=== PATIENT | male | born 1985 | race African-American/Black ===

== ENCOUNTER 2016-12-05 20:00 | Emergency (ER) | payer SELFPAY ==
[~2016-12-05] VITALS: Ht 182.9 cm; Wt 78.0 kg
[2016-12-05 20:01] VITALS: BP 147/70; PULSE 79; RESP 16; TEMP 98.7; O2SAT 98
[2016-12-05] MEDS ORDERED: DICL75TA PO (20:27)
[2016-12-05] MEDS ORDERED: CYCL1TAB29 PO (20:27)
[2016-12-05] MEDS ORDERED: CYCLOBENZAPRINE HCL 10 MG TAB PO ONE (20:30)
[2016-12-05] MEDS ORDERED: NAPROXEN 500 MG TAB PO ONE (20:30)
--- NOTE | 2016-12-05 20:33 | PD ---
HPI Chief Complaint: Back/ Neck Pain or Injury Time Seen by Provider: 20:29 Travel History International Travel<30 days: No Contact w/Intl Traveler<30days: No Traveled to known affect area: No History of Present Illness HPI 31-year-old male presents emergency Department with complaints of acute exacerbation of chronic back pain. He states that he has back pain on a regular basis. He works doing welding and grinding. He states that he was bending over today and feels that this has exacerbated his chronic back pain. He states the pain is aching and cramping. Moderate in intensity but can get worse with certain movements. He does have some radiation of pain from lower back into the left leg. He denies any numbness or tingling. He denies any acute bowel or bladder changes. No trauma. No recent illness. The patient moved from [place] to [facility] in June of this year. Does not have a primary care doctor. PFSH Past Medical History Narrative Medical Chronic back pain Tetanus Vaccination: < 5 Years Social History Alcohol Use: Yes Tobacco Use: No (quit 5 years ago) Allergies-Medications (Allergen,Severity, Reaction): Coded Allergies: No Known Allergies (Unverified , 12/05/16) Reported Meds & Prescriptions Reported Meds & Active Scripts Active Flexeril (Cyclobenzaprine HCl) 10 Mg Tab 10 Mg PO TID Diclofenac Sodium DR (Diclofenac Sodium) 75 Mg Tabdr 75 Mg PO BID Review of Systems Except as stated in HPI: all other systems reviewed are Neg Physical Exam Narrative GENERAL: Well-developed, well-nourished in no apparent distress. Nontoxic appearing. HEAD: Normocephalic, atraumatic. EYES: Pupils equal round and reactive. Extraocular motions intact. No scleral icterus. No injection or drainage. ENT: Nose clear. Throat without erythema, tonsillar hypertrophy or exudate. Uvula midline. Airway patent. NECK: Trachea midline. Supple, nontender, moves head freely. No central bony tenderness or spasm. CARDIOVASCULAR: Regular rate and rhythm without murmurs, gallops, or rubs. RESPIRATORY: Clear to auscultation. Breath sounds equal bilaterally. No wheezes , rales, or rhonchi. GASTROINTESTINAL: Abdomen soft, non-tender, nondistended. No hepato-splenomegaly , or palpable masses. No guarding. EXTREMITIES: No clubbing, cyanosis, or edema. No joint tenderness. BACK: No central bony tenderness to palpation of the dorsal and lumbar spine. Without deformity. No flank tenderness. Patient ambulates freely. Negative straight leg raise bilaterally. Patient complains of bilateral lower lumbar tenderness. No gross spasm. No saddle anesthesia. Heel and toe stand. Deep tendon reflexes are 3+ bilaterally in the lower extremities NEUROLOGICAL: Awake, alert and oriented x 3 .Cranial nerves grossly intact. Motor and sensory grossly within normal limits. Normal speech. Data Data Last Documented VS Vital Signs Date Time Temp Pulse Resp B/P Pulse Ox O2 Delivery O2 Flow Rate FiO2 12/05/16 20:01 98.7 79 16 147/70 98 Room Air MDM Medical Decision Making Medical Screen Exam Complete: Yes Emergency Medical Condition: Yes Medical Record Reviewed: Yes Differential Diagnosis MDM: High Differential diagnoses: Fracture, sprain, strain, HNP, nerve or vascular injury , epidural abscess, pilonidal cyst Narrative Course Patient is given Naprosyn 500 and Flexeril 10 mg by mouth. This is acute exacerbation of chronic back pain Diagnosis Primary Impression: Acute exacerbation of chronic low back pain Patient Instructions: General Instructions Departure Forms: Tests/Procedures, Work Release Special Instructions: No work 3 days. Additional Instructions: Rest. Ice for the next 3 days followed by heat . Flexeril and Voltaren. Weight reduction. Daily exercise. Follow-up with a primary care doctor in one week. Return to the ER for emergencies. Med/Other Pt SpecificInfo: Prescription(s) given Scripts Cyclobenzaprine (Flexeril)10 Mg Tab10 Mg PO TID #30 TAB Prov:Whitney Smith MD 12/05/[address] 75 Mg Tabdr75 Mg PO BID #20 TAB Prov:Whitney Smith MD 12/05/16 Disposition: 01 DISCHARGE HOME Condition: Stable Charlie King Dec 05, 2016 20:33
== END 2016-12-05 20:59 | disposition home or self-care (01) ==
LOC: NEPK 20:00
DX: M54.5 Low back pain (principal); Z79.899 Other long term (current) drug therapy
CPT/HCPCS: 99284